=== PATIENT | male | born 1990 | race Hispanic/Latino ===

== ENCOUNTER 2021-04-19 16:29 | Emergency (ER) | payer OTHER ==
[~2021-04-19] VITALS: Ht 175.3 cm; Wt 83.5 kg
[2021-04-19] MEDS ORDERED: VENL150C2 PO (18:15)
[2021-04-19 18:34] VITALS: BP 124/75
== END 2021-04-19 18:35 | disposition home or self-care (01) ==
LOC: EDH 16:29
DX: F41.9 Anxiety disorder, unspecified (principal); F32.9 Major depressive disorder, single episode, unspecified; Z76.0 Encounter for issue of repeat prescription; Z90.49 Acquired absence of other specified parts of digestive tract
CPT/HCPCS: 99281

== ENCOUNTER 2022-03-24 06:49 | Emergency (ER) | payer OTHER ==
[~2022-03-24] VITALS: Ht 175.3 cm; Wt 95.3 kg
[~2022-03-24 06:49] MED LIST: VENL150C4 PO
[2022-03-24] MEDS ORDERED: ONDANSETRON ODT 4MG TAB SL ONE (08:00)
[2022-03-24] MEDS ORDERED: IBUPROFEN 600 MG TABLET PO ONE (08:00)
[2022-03-24] MEDS ORDERED: BENZONATATE 100 MG CAPSULE PO ONE (08:00)
[2022-03-24] MEDS ORDERED: BENZ-39 PO (09:06)
[2022-03-24] MEDS ORDERED: ONDA4TAB10 PO (09:06)
[2022-03-24] MEDS ORDERED: IBUP-2070 PO (09:06)
[2022-03-24 09:19] VITALS: BP 138/74
== END 2022-03-24 09:20 | disposition home or self-care (01) ==
LOC: EDH 06:49
DX: U07.1 COVID-19 (principal); J06.9 Acute upper respiratory infection, unspecified; R03.0 Elevated blood-pressure reading, without diagnosis of hypertension; F41.9 Anxiety disorder, unspecified; Z90.49 Acquired absence of other specified parts of digestive tract; Z79.899 Other long term (current) drug therapy
CPT/HCPCS: 99284; 87635; 87880; 87804 ×2; C9803